=== PATIENT | female | born 1965 | race Caucasian/White ===

== ENCOUNTER 2024-06-24 13:18 | Outpatient (CLI) | payer MEDICAID, SELFPAY | END 2024-06-24 13:19 | disposition home or self-care (01) | PROVIDERS: PCP Family Medicine; Visit Provider Nurse Practitioner Family | DX: R53.83 Other fatigue (principal); R05.9 Cough, unspecified; R55 Syncope and collapse | CPT/HCPCS: 80053; 85025 ==

== ENCOUNTER 2025-01-10 07:30 | Outpatient (RCR) | payer OTHER, BC, SELFPAY | END 2025-05-10 23:59 | disposition home or self-care (01) | PROVIDERS: PCP Family Medicine; Visit Provider Family Medicine | DX: M75.101 Unspecified rotator cuff tear or rupture of right shoulder, not specified as traumatic (principal); M99.07 Segmental and somatic dysfunction of upper extremity; M25.511 Pain in right shoulder; Z51.89 Encounter for other specified aftercare | CPT/HCPCS: 97110; 97140; 97162 ==

== ENCOUNTER 2025-02-12 11:46 | Outpatient (CLI) | payer OTHER, SELFPAY ==
--- NOTE | 2025-02-12 12:15 | CRLHL7_ITS ---
For Patients: As a result of the 21st Century Cures Act, medical imaging exams and procedure reports are released immediately into your electronic medical record. You may view this report before your referring provider. If you have questions, please contact your health care provider. CLINICAL INDICATION: Unspecified rotator cuff tear or rupture. COMPARISON IMAGING STUDIES: None available at time of interpretation. TECHNICAL: Non-contrast MRI of the right shoulder. Axial, sagittal oblique and coronal oblique T1, PD, PD FS, T2 and T2 FS images. 1.5 Gayatri MR scanner. FINDINGS: GLENOHUMERAL JOINT: Effusion/Joint Space: No effusion. No joint bodies. Humeral Head Articular Cartilage: Maintained. Glenoid Articular Cartilage: Maintained. Alignment: Maintained. Capsule: The glenohumeral joint capsule appears edematous. Specifically, axillary pouch edema is noted on coronal oblique PD fat-sat image number 14 of series 7. This may relate either to capsular sprain or capsulitis. OSSEOUS STRUCTURES: No fracture or marrow replacement process. CORACOACROMIAL ARCH: Acromial Morphology: Type 2 acromial morphology. Mild lateral downward sloping of the acromion. No os acromiale. No significant subacromial spur. Lateral acromial thickness is 5 mm. Acromiohumeral Interval: At its narrowest, the interval measures 5 mm. Coracohumeral Interval: At its narrowest, the coracohumeral interval measures 7 mm. Coracoid index is 13 mm. ACROMIOCLAVICULAR JOINT REGION: AC joint intact. Coracoclavicular ligament intact. BURSAE: No bursal fluid collection. ROTATOR CUFF TENDONS AND MUSCLES AND DELTOID: Supraspinatus and Infraspinatus: There is an approximately 7 millimeter area of mild undersurface attenuation of the supraspinatus tendon which likely reflects a small area of prior low-grade partial-thickness undersurface tendon tearing. There is no high-grade supraspinatus tendon tear or muscle atrophy. Distal infraspinatus tendon is intact. No infraspinatus muscle atrophy. Teres Minor: No tendinosis, tendon tearing, muscle atrophy or muscle edema. Subscapularis: No tendinosis, tendon tearing, muscle atrophy or muscle edema. Deltoid: No muscle atrophy or edema. BICEPS TENDON, LONG HEAD: The long head of the biceps tendon is intact. No subluxation or dislocation of tendon from bicipital groove. GLENOID LABRUM: Superior labrum may be frayed. Labrum otherwise intact. OTHER FINDINGS: There is no abnormality within the suprascapular or spinoglenoid notches nor within the quadrilateral space. No axillary adenopathy or mass. IMPRESSION: 1. Right glenohumeral joint capsular edema reflecting either capsulitis or capsular sprain depending on recent trauma history. 2. Sequelae of small area of low-grade partial-thickness undersurface supraspinatus tendon tearing. No high-grade tendon tear or muscle atrophy. 3. Mild lateral downward sloping of the acromion with mildly narrowed acromiohumeral interval. 4. No bursal fluid collection. Dictated by Vaibhav Hoyos MD @ 02/13/2025 9:51:40 AM (Electronically Signed)
== END 2025-02-12 11:47 | disposition home or self-care (01) ==
LOC: MRI 11:48
PROVIDERS: PCP Family Medicine; Visit Provider Family Medicine
DX: M25.511 Pain in right shoulder (principal); M75.101 Unspecified rotator cuff tear or rupture of right shoulder, not specified as traumatic
CPT/HCPCS: 73221

== ENCOUNTER 2025-04-01 13:12 | Outpatient (CLI) | payer BC, SELFPAY | END 2025-04-01 13:13 | disposition home or self-care (01) | LOC: FRMREF 13:14 | PROVIDERS: PCP Family Medicine; Visit Provider Family Medicine | DX: D68.00 Von Willebrand disease, unspecified (principal); R07.89 Other chest pain | CPT/HCPCS: 85379 ==

== ENCOUNTER 2025-04-02 13:01 | Outpatient (CLI) | payer BC, SELFPAY ==
--- NOTE | 2025-04-02 13:30 | CRLHL7_ITS ---
For Patients: As a result of the Century Cures Act, medical imaging exams and procedure reports are released immediately into your electronic medical record. You may view this report before your referring provider. If you have questions, please contact your health care provider. INDICATION: History of von Willebrand`s disease. Elevated D-dimer. Chest pressure. Assess for pulmonary embolus. COMPARISON: None TECHNIQUE: : CT examination of the chest was performed with the uneventful intravenous administration of 95 cc of Isovue 370 while thin axial sections were obtained from above the apices of the lungs to the lung bases. The examination was timed as a pulmonary artery angiogram. 3D reformat/MIP imaging was also provided. Please note that all CT scans at this facility use dose modulation, iterative reconstruction, and/or weight-based dosing when appropriate to reduce radiation dose to as low as reasonably achievable. FINDINGS: : HEART and MEDIASTINUM: The heart size is normal. There is no mediastinal or hilar adenopathy or mass. There is no pericardial effusion. PULMONARY ARTERIAL CIRCULATION: There is no visible intraluminal filling defect to suggest pulmonary embolus. LUNGS and PLEURAL SPACES: The lungs show no focal consolidation or mass. The airways appear normal.There is no pleural effusion, pneumothorax or pleural based mass. A few small nodules are noted. The largest is at the left base measuring 4.7 millimeters. In a high-risk individual, consider a 12 month follow-up CT. There is also minimal basilar atelectasis. VISUALIZED UPPER ABDOMEN: The limited visualized upper abdominal structures appear normal. OSSEOUS STRUCTURES: Age-appropriate appearance. No acute fracture or destructive process. TUBES and LINES: None. IMPRESSION: 1. There is no finding of pulmonary embolus. 2. Minimal basilar atelectasis. A few small nodules are noted the largest of which measures 4.7 millimeters. Consider 12 month follow-up chest CT in a high risk individual. No pleural effusion or pneumothorax. 3. Heart size normal. No mediastinal or hilar adenopathy or mass. . Please note that all CT scans at this facility use dose modulation, iterative reconstruction, and/or weight-based dosing when appropriate to reduce radiation dose to as low as reasonably achievable. Dictated by Josh Granados MD @ 04/02/2025 2:05:14 PM (Electronically Signed)
== END 2025-04-02 13:02 | disposition home or self-care (01) ==
LOC: CT 13:02
PROVIDERS: PCP Family Medicine; Visit Provider Family Medicine
DX: R07.89 Other chest pain (principal); J98.11 Atelectasis; R91.1 Solitary pulmonary nodule; D68.00 Von Willebrand disease, unspecified; R79.89 Other specified abnormal findings of blood chemistry
CPT/HCPCS: 71275; Q9967